=== PATIENT | male | born 2000 | race Two or more races ===

== ENCOUNTER 2024-10-03 09:40 | Emergency (ER) | payer OTHER, SELFPAY ==
[2024-10-03 09:42] VITALS: BP 157/85; PULSE 87; RESP 18; TEMP 36.8; O2SAT 98; BMI 31.3
[2024-10-03 10:10] LABS: Appearance Urine Clear; Color Urine Dark Yellow; Glucose Urine UA Negative (Negative); Leukocyte Esterase Urine Negative (Negative); Nitrite Urine Negative (Negative); Specific Gravity - Urine 1.025 (1.005-1.025); Urine Blood Negative (Negative); Urine Ketones Trace mg/dL (Negative); Urine Protein Trace mg/dL (Neg-Trace)
--- NOTE | 2024-10-03 10:51 | ED.MALEGU ---
HPI - Male Genitourinary General Chief complaint: Urogenital-Male Stated complaint: wants std test Time Seen by Provider: 10/03/24 10:15 Source: patient Mode of arrival: ambulatory Limitations: no limitations History of Present Illness ED Provider: Rossana Saldaña NP HPI Narrative: Patient is a 24-year-old male presents emergency department expressing concern for sexually transmitted infection. He endorses having unprotected sexual intercourse yesterday night and would like to be tested for sexually transmitted infections. The initial nursing triage note states that he is having burning with urination, however this is not the case. He states that he has a very mild discomfort when he is retracting his foreskin (uncircumcised), but denies there to be any notable pain, redness, swelling, discharge from the urethra. The foreskin is retracting freely. He declines any visual inspection to this area. He states he has not otherwise had any intercourse in at least 4-5 months. He is requesting screening testing for HIV, no known positive intercourse partners but has not had routine testing and sometime Related Data Previous Rx's ?Medication ?Instructions ?Recorded doxycycline hyclate 100 mg capsule 100 mg PO BID #13 caps 10/03/24 Allergies Allergy/AdvReac Type Severity Reaction Status Date / Time No Known Allergies Allergy Verified 10/03/24 09:44 Review of Systems Review of Systems: Yes all other systems are reviewed and are negative PMFSH Past Medical History Attestation statement: The following information was validated with the patient. Source: old records reviewed Social History Social History Advance Directives: No Advance Directives Information Provided: No Do you have a plan to hurt others: No Plan Physical Exam Vital Signs: Vital Signs: Last Vital Signs Temp 98.2 F 10/03/24 09:42 Pulse 87 10/03/24 09:42 Resp 18 10/03/24 09:42 BP 157/85 H 10/03/24 09:42 Pulse Ox 98 10/03/24 09:42 O2 Del Method Room Air 10/03/24 09:42 BMI result Body Mass Index 31.3 Appearance: Alert.?Oriented to person, place and time. No acute distress.?Normal affect.? CVS: Heart sounds normal. Normal heart rate and rhythm.? Pulses normal.?? Respiratory: No respiratory distress.? Lung sounds clear to auscultation bilaterally?? Skin: Skin warm and dry.? Normal skin color.? Genital: Declines examination Neuro: Moves all extremities spontaneously. Ambulates with normal steady gait. Medical Decision Making Medical Decision Making [facility] Narrative: Patient is a 24-year-old male who presents emergency department concern for possible sexually transmitted infection, mild discomfort on retraction of his foreskin which she states does move freely. Unfortunately he declines examination of the genital region. He denies any redness swelling notable pain or active drainage to suggesting localized infection. He states that this not typically masturbate and it has been 4-5 months since his last intercourse, he is not certain whether the discomfort he is feeling is due to lack of retraction of the foreskin in the recent past. Urinalysis was obtained and is without evidence of urinary tract infection. Routine screening for chlamydia and gonorrhea have been sent and are still pending. He is requesting prophylactic treatment chlamydia/gonorrhea which I feel is reasonable, he was given a single dose of Rocephin IM in the emergency department in the 1st dose of doxycycline with the remainder prescription sent to the pharmacy. Discussed that the intercourse from last night would be too soon to detect sexually transmitted infections, any positive test results would be indicative of prior infection. He is provided with resources to follow-up for outpatient routine HIV screening. All questions answered. Stable for discharge Differential Diagnosis Differential Diagnoses: The differential diagnosis associated with the presentation includes (See narrative above) Lab Data [facility] Lab Attestation statement: I reviewed the patient's lab results. (See narrative above) Labs: Lab Results 10/03/24 Range/Units 10:03 Urine Color Dark Yellow Urine Appearance Clear Urine pH 7.0 (5.0-9.0) Ur Specific [place] 1.025 (1.005-1.025) Urine Protein Trace (Neg-Trace) mg/dL Urine Glucose (UA) Negative (Negative) mg/dL Urine Ketones Trace (Negative) mg/dL Urine Blood Negative (Negative) Urine Nitrite Negative (Negative) Ur Leukocyte Esterase Negative (Negative) External Record Review External record reviewed: Outpatient record Prescription Management I considered prescription management with: Antibiotic Discharge Plan Discharge Clinical Impression: Concern about sexually transmitted disease in male without diagnosis Patient Disposition: Home, Self-Care Additional Instructions: As discussed, testing was sent today for chlamydia and gonorrhea, if you receive a call back from the facility over the next few days this is in regards to positive testing results. If you do not receive a call from us then this test result is negative. However, as mentioned, it is too soon to detect any sexually transmitted infection from the intercourse that occurred last night. If this test does come back positive it is from a prior intercourse/infection. You have accepted prophylactic treatment for sexually transmitted infection who received an injection of Rocephin today and the 1st dose of doxycycline. The remainder prescription has been sent to your pharmacy for twice daily a total of 7 days. On doxycycline, do not take pills immediately before going to bed and swallow pills with plenty of water. Avoid direct sunlight, iron, antacids, and Pepto Bismol. Call your provider if you develop new ringing in your ears, new problems hearing, dizziness, difficulty swallowing, rash, abdominal discomfort, nausea, or diarrhea.? In regards to additional STI testing such as HIV, this may be performed at local clinic such as [facility] their clinics here in [place] as well as in [place]. But as mentioned, it would be too soon to detect HIV from intercourse that occurred last night, typically it is recommended to have screening 4-6 weeks after intercourse. She do have a positive test results in the next few days this to be indicative of a prior infection. Prescriptions: New doxycycline hyclate 100 mg capsule 100 mg PO BID Qty: 13 0RF Referrals: Physician,None [Primary Care Provider] - Print Language: Thai
[2024-10-03] MEDS: Doxycycline Monohydrate 100 MG CAPSULE PO (11:46)
[2024-10-03] MEDS: cefTRIAXone sodium 500 MG, Lidocaine HCl 1 % MPF 1 ML IM (11:46)
[2024-10-03 11:48] VITALS: BP 157/85; PULSE 87; RESP 18; TEMP 36.8; O2SAT 98
[2024-10-03 11:49] LABS: CT PCR NOT DETECTED (Not Detect.); NG PCR NOT DETECTED (Not Detect.)
== END 2024-10-03 11:49 | disposition home or self-care (01) ==
PROVIDERS: Emergency Provider Emergency Medicine
DX: N48.89 Other specified disorders of penis (principal); Z20.2 Contact with and (suspected) exposure to infections with a predominantly sexual mode of transmission
CPT/HCPCS: 81003; 87491; 87591; 96372; 99282; 99284; J0696; J2003